=== PATIENT | female | born 1995 | race Caucasian/White ===

== ENCOUNTER 2017-08-03 23:24 | Emergency (ER) | payer MEDICAID | END 2017-08-04 00:23 | disposition home or self-care (01) | LOC: D.ER 23:24 | DX: S62.644A Nondisplaced fracture of proximal phalanx of right ring finger, initial encounter for closed fracture (principal); X58.XXXA Exposure to other specified factors, initial encounter; Y93.89 Activity, other specified; Y92.019 Unspecified place in single-family (private) house as the place of occurrence of the external cause; F17.200 Nicotine dependence, unspecified, uncomplicated ==

== ENCOUNTER 2019-03-12 12:43 | Emergency (ER) | payer OTHER ==
[~2019-03-12] VITALS: Ht 162.6 cm; Wt 60.0 kg
[2019-03-12 13:01] VITALS: Ht 162.6 cm; Wt 60.0 kg
[2019-03-12] MEDS ORDERED: ALBUTEROL SULF8.5 GM INH (13:03)
[2019-03-12] MEDS ORDERED: TORADOL10 MG PO (14:03)
[2019-03-12 14:40] VITALS: BP 96/75
== END 2019-03-12 14:40 | disposition home or self-care (01) ==
LOC: D.ER 12:43
DX: B08.4 Enteroviral vesicular stomatitis with exanthem (principal)